=== PATIENT | male | born 1995 | race African-American/Black ===

== ENCOUNTER 2021-12-13 08:26 | Inpatient (IN) | payer OTHER, SELFPAY ==
[2021-12-13] VITALS (9 sets, daily range): BP systolic 137–188; BP diastolic 79–101; PULSE 75–98; RESP 12–18; TEMP 37.1; O2SAT 96–100; BMI 42.5
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
[2021-12-13] MEDS: LORazepam 2 MG/ML VIAL IM (15:44)
[2021-12-13] MEDS: diphenhydrAMINE HCL 50 MG/ML VIAL IM (15:44)
[2021-12-13] MEDS: Haloperidol Lactate 5 MG/ML VIAL 10 MG IM (15:44)
[2021-12-13] MEDS: lisinopriL 10 MG TABLET PO (16:51)
[2021-12-13] MEDS: Loratadine 10 MG TABLET PO (16:52)
[2021-12-13 17:20] LABS: COVID-19 Test Negative (Negative); IDNOW Serial# 16C4AD1C
[2021-12-13 18:28] LABS: Amphetamine Screen Urine Not Detected (Not Detect); Barbiturates, Urine Not Detected (Not Detect); Benzodiazepines Screen Urine Not Detected (Not Detect); Cannabinoid Screen Urine POSITIVE (Not Detect); Cocaine Screen Urine Not Detected (Not Detect); Fentanyl, urine Not Detected (Not Detect); Opiate Screen Urine Not Detected (Not Detect); Phencyclidine Screen Urine Not Detected (Not Detect)
[2021-12-14 00:32] VITALS: RESP 14
[2021-12-14 06:20] VITALS: RESP 16
--- NOTE | 2021-12-14 06:48 | PC.NURSE ---
PT woke up and came out of his room for the first time during this shift. PT is calm and cooperative at this time, successfully changed over, and awaiting progress in his plan of care.
--- NOTE | 2021-12-14 07:24 | PC.NURSE ---
reports recieved from Richard ARGUETA. PT has been ambulatory to [facility] and to use phone. calm at this time. steady on feet.
[2021-12-14] MEDS: lisinopriL 10 MG TABLET PO (09:04)
[2021-12-14] MEDS: Loratadine 10 MG TABLET PO (09:04)
--- NOTE | 2021-12-14 09:50 | PC.NURSE ---
Tiffanie Ricardo, on phone, permission given for update by this RN.
--- NOTE | 2021-12-14 10:04 | PHA.MEDREC ---
Pharmacy Consult ? Medication Reconciliation Pharmacy has completed the medication reconciliation. Pt poor historian, agreeable to every thing I had on my list. Pt did have some medications in locker with rx labels. Leah Gardner, CharletteD
--- NOTE | 2021-12-14 10:36 | PC.NURSE ---
Pt has been calm throughout the morning. Asking appropriate questions regarding crisis process.
[2021-12-14 10:46] VITALS: BP 144/71; PULSE 74; RESP 18; TEMP 37.2; O2SAT 98
--- NOTE | 2021-12-14 10:49 | ECG_ITS ---
Test Reason : medical clearance Blood Pressure : / mmHG Vent. Rate : 063 BPM Atrial Rate : 063 BPM P-R Int : 162 ms QRS Dur : 088 ms QT Int : 400 ms P-R-T Axes : 052 078 035 degrees QTc Int : 409 ms Normal sinus rhythm Normal ECG No previous ECGs available Referred By: Latrice Allen Electronically Signed By:Cabrera Pruitt
[2021-12-14 11:26] LABS: MANUAL DIFF FLAG NO
[2021-12-14 11:31] LABS: Basophils Percent Auto 0.1 % (0-2); Eosinophils Absolute Auto 0.2 X10*3/uL (0.0-0.4); Eosinophils Percent Auto 1.9 % (0-4); Hemoglobin 15.6 g/dl (14.0-18.0); Imm Gran Abs Auto 0.03 X10*3/uL (0.00-0.03); Imm Gran Pct Auto 0.4 % (0.0-0.4); Lymphocytes Absolute Auto 2.5 X10*3/uL (1.2-4.9); Mean Corpuscular HGB Conc 33.2 g/dl (31.0-36.0); Mean Corpuscular Hemoglobin 29.9 pg (27.0-33.0); Mean Platelet Volume 9.8 fL (9.4-12.4); Monocytes Absolute Auto 0.9 X10*3/uL (0.1-1.2); Monocytes Percent Auto 11.3 % (2-11); Neutrophils Absolute Auto 4.3 x10*3/uL (2.0-8.3); Neutrophils Percent Auto 54.3 % (45-73); Platelet Count 257 X10*3/uL (160-400); Red Blood Count 5.22 X10*6/uL (4.60-5.80); Red Cell Distribution Width 13.7 % (11.0-16.0); White Blood Count 7.8 X10*3/uL (4.8-10.8)
[2021-12-14] MEDS: Fluticasone Propionate Nasal 16 GM SPRAY 1 SPRAY NOSTRIL-B (11:31)
[2021-12-14] MEDS: amLODIPine Besylate 5 MG TABLET PO (11:31)
[2021-12-14 11:45] LABS: Alanine Aminotransferase 26 U/L (0-40); Albumin Level 4.2 g/dL (3.5-5.0); Alkaline Phosphatase 82 U/L (39-117); Anion Gap 13 (12-20); Aspartate Amino Transferase 61 U/L (5-37); Bilirubin Total 0.9 mg/dL (0.0-1.0); Blood Urea Nitrogen 13 mg/dL (9-16); Calcium 9.5 mg/dL (8.4-10.2); Carbon Dioxide 26 mmol/L (22-29); Chloride 103 mmol/L (96-108); Creatinine Clr Calc Pharmacy 136.7; Estimated Glomerular Filt Rate > 60; Glucose Random 86 mg/dL (60-115); Potassium 4.3 mmol/L (3.3-5.1); Sodium 138 mmol/L (135-145); Total Protein 7.4 g/dL (6.5-8.0)
--- NOTE | 2021-12-14 15:53 | PC.NURSE ---
rn to rn with ambrocio on m5
[2021-12-14 18:00] VITALS: BP 139/83; PULSE 87; RESP 16; TEMP 36.8; O2SAT 99
[2021-12-14 18:04] VITALS: BMI 44.5
[2021-12-14] MEDS: traZODone HCL 50 MG TABLET PO (19:53)
--- NOTE | 2021-12-14 20:11 | PC.ADMIT ---
Pt is a 26y/o male admitted for SI concerns after Pt's found what appeared to be a suicide note. Pt was restraint due to agitation to growing agitation and stating he was going to leave. Pt is alert and oriented X4, VSS, covid negative and tox positive for thc. Pt's record shows acute HTN. Pt is quite and pleasant put in a 3 day notice, states he wants to leave as soon as possible. Upon assessment Pt is cooperative. Speech is regular with normal tone rate and rhythm. Denies SI/HI and all psych symptoms. 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 Pt has no psych history and denies any prior psych treatment. Pt is looking forward to getting out of here on Saturday when his 3 day is up. Admission order obtained.
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
[2021-12-14] MEDS: Acetaminophen 325 MG TABLET 650 MG PO (22:22)
[2021-12-15] MEDS: Loratadine 10 MG TABLET PO (08:19)
[2021-12-15] MEDS: Fluticasone Propionate Nasal 16 GM SPRAY 1 SPRAY NOSTRIL-B (08:20)
[2021-12-15] MEDS: lisinopriL 10 MG TABLET PO (08:20)
[2021-12-15] MEDS: amLODIPine Besylate 5 MG TABLET PO (08:20)
[2021-12-15] MEDS: Triamcinolone Acet 0.025 % Cream 15 GM TUBE 1 APPL TOPICAL (08:20)
[2021-12-15 08:33] VITALS: BP 139/89; PULSE 92; RESP 18; TEMP 36.8; O2SAT 97
[2021-12-15 09:23] LABS: Cholesterol 174 mg/dL; HDL Cholesterol 44 mg/dL; LDL Cholesterol Calculated 117 mg/dl; Triglycerides 68 mg/dL
[2021-12-15] MEDS: Acetaminophen 325 MG TABLET 650 MG PO (12:20)
[2021-12-15] MEDS: Benzocaine 20 % Oral Gel 9 GM TUBE 1 APPL MUCOUS MEM ×2 (13:09→18:11)
--- NOTE | 2021-12-15 18:45 | P.PNPSI_ITS ---
Subjective Subjective Date of Service: 12/15/21 Reason For Visit: SI Interim History: Patient seen and discussed with team. Patient evaluated today and upon interview he reports I really want to see my kids, was looking forward to seeing them for Easter. He continues to adamantly deny SI and state that the letter his found was not a suicide note and this was misinterpreted. Says he still doesnt want psychotropic medications. Sleep is good, utilizing trazodone. In the milieu, patient is safe and appropriate in behavior. Denies SI/SIB/HI upon inquiry. Denies irritability or assaultive ideation. Says he feels safe. Mental Status Exam Mental Status Exam Narrative: A&O. Well groomed, good hygiene, overweight. Good eye contact, attentive. No Tics or Tremors. No abnormal involuntary movements. Calm, cooperative, engaged. Non-pressured speech, spontaneous with regular rate and rhythm, normal volume and prosody. No prolonged speech latency or dysarthria. Mood is ?fine,? affect is euthymic. Denies SI/SIB/HI upon inquiry. Denies A/VH or delusional thought content. Thoughts are coherent, organized. No known cognitive or memory impairment. Insight/ Judgment fair and adequate. Diagnostics Vital Signs (24Hr): Vital Signs - 24 hr 12/15/21 08:33 Temperature 98.2 F Pulse Rate 92 Respiratory Rate 18 Blood Pressure 139/89 Pulse Oximetry 97 BMI result Body Mass Index 44.5 Labs Results: 12/14/21 11:13 12/14/21 11:13 Labs: Laboratory Results - last 48 hr 12/14/21 12/14/21 12/15/21 11:13 11:13 08:05 WBC 7.8 RBC 5.22 Hgb 15.6 Hct 47.0 MCV 90.0 MCH 29.9 MCHC 33.2 RDW 13.7 Plt Count 257 MPV 9.8 Immature Gran % (Auto) 0.4 Neut % (Auto) 54.3 Lymph % (Auto) 32.0 [place] % (Auto) 11.3 H Eos % (Auto) 1.9 Baso % (Auto) 0.1 Lymph # (Auto) 2.5 [place] # (Auto) 0.9 Eos # (Auto) 0.2 Baso # (Auto) 0.0 Abs Immat Gran (auto) 0.03 Absolute Neuts (auto) 4.3 Absolute Nucleated RBC 0.000 Nucleated RBC % (auto) 0.0 Sodium 138 Potassium 4.3 Chloride 103 Carbon Dioxide 26 Anion Gap 13 BUN 13 Creatinine 1.04 Estim Creat Clear Calc 136.7 Estimated GFR > 60 Random Glucose 86 Calcium 9.5 Total Bilirubin 0.9 AST 61 H ALT 26 Alkaline Phosphatase 82 Total Protein 7.4 Albumin 4.2 Triglycerides 68 Cholesterol 174 LDL Cholesterol, Calc 117 HDL Cholesterol 44 Medications Medications Current Medications Acetaminophen (Acetaminophen 325 Mg Tablet) 650 mg PO Q6H PRN PRN Reason: Headache/Pain Mild Scale (1-3) Last Admin: 12/15/21 12:20 Dose: 650 mg Documented by: Al Hydroxide/Mg Hydroxide (Magnesium Hydrox/Alum Hydrox 30 Ml Oral.Susp) 30 ml PO Q6H PRN PRN Reason: Heartburn/Nausea Albuterol Sulfate (Albuterol Sulfate 90 Mcg 8 Gm Inhaler) 2 puff INHALE Q4H PRN PRN Reason: Wheezing Amlodipine Besylate (Amlodipine Besylate 5 Mg Tablet) 5 mg PO DAILY [facility]; Protocol Last Admin: 12/15/21 08:20 Dose: 5 mg Documented by: Benzocaine (Benzocaine 20 % Oral Gel 9 Gm Tube) 1 appl MUCOUS MEM QID PRN; Protocol PRN Reason: tooth/gum pain Last Admin: 12/15/21 18:11 Dose: 1 appl Documented by: Diphenhydramine HCl (Diphenhydramine Hcl 25 Mg Tablet) 50 mg PO Q4H PRN PRN Reason: agitation Fluticasone Propionate (Fluticasone Propionate Nasal 16 Gm [place]) 1 spray NOSTRIL-B DAILY [facility] Last Admin: 12/15/21 08:20 Dose: 1 spray Documented by: Fluticasone/Vilanterol (Fluticasone/Vilanterol 100/25 Blst.W.Dev) 1 puff INHALE RDAILY [facility] Last Admin: 12/15/21 10:54 Dose: Not Given Documented by: Haloperidol (Haloperidol 5 Mg Tablet) 10 mg PO Q4H PRN PRN Reason: agitation Hydroxyzine HCl (Hydroxyzine Hcl 25 Mg Tablet) 25 mg PO BEDTIME PRN PRN Reason: Anxiety Ketoconazole (Ketoconazole 2 % Shampoo 120 Ml Btl) 1 appl TOPICAL Q2D [facility]; Protocol Last Admin: 12/15/21 14:13 Dose: Not Given Documented by: Lisinopril (Lisinopril 10 Mg Tablet) 10 mg PO DAILY [facility]; Protocol Last Admin: 12/15/21 08:20 Dose: 10 mg Documented by: Loratadine (Loratadine 10 Mg Tablet) 10 mg PO DAILY [facility] Last Admin: 12/15/21 08:19 Dose: 10 mg Documented by: Lorazepam (Lorazepam 1 Mg Tablet) 2 mg PO Q4H PRN PRN Reason: agitation Magnesium Hydroxide (Milk Of Magnesia 30 Ml Oral.Susp) 30 ml PO DAILY PRN PRN Reason: Constipation Nicotine Polacrilex (Nicotine Polacrilex Lozenge 2 Mg Lozenge) 2 mg BUCCAL QID PRN PRN Reason: Nicotine Cravings Trazodone HCl (Trazodone Hcl 50 Mg Tablet) 50 mg PO BEDTIME [facility] Last Admin: 12/14/21 19:53 Dose: 50 mg Documented by: Triamcinolone Acetonide (Triamcinolone Acet 0.025 % Cream 15 Gm Tube) 1 appl TOPICAL DAILY [facility] Last Admin: 12/15/21 08:20 Dose: 1 appl Documented by: Allergies Allergies Allergy/AdvReac Type Severity Reaction Status Date / Time ibuprofen Allergy Hives Verified 12/13/21 08:41 Assessment & Plan Assessment & Plan (1) MDD (major depressive disorder), recurrent episode, mild: Status: Acute Code(s): F33.0 - Major depressive disorder, recurrent, mild (2) Post traumatic stress disorder (PTSD): Status: Acute Code(s): F43.10 - Post-traumatic stress disorder, unspecified Plan Jesus is a 26 y.o. Male who carries a dx of PTSD, MDD recurrent. He presented to [facility] ED on 12/13/21 via PD, however not on a Section 12, after his found a letter written by pt which she interpreted to be suicidal and she called 911. Pt adamantly denies suicidal ideation or that it was a suicide note. Pt does not have a psych history. Hx of stimulants for ADHD sx from PCP but no other psych med trials. Pt is advocating to leave, as he feels he is safe and stable, signed a 3 day notice. Plan: Pt does not want to trial psychiatric medication. He is interested in starting couples therapy with his . Q15 min safety checks, CV Monitor response to medications. Monitor for safety in the milieu. Discharge on stabilization. Patient seen. Chart reviewed. Discussed with team. Obtain collateral contact info?as needed I spent minutes with the patient and/or on the patient floor today, greater than?50% of which was spent counseling/coordinating care. Patient educated on: therapeutic strategies Reason for contiued inpatient stay Substantial Risk for: stable for discharge
--- NOTE | 2021-12-15 18:46 | PM.DS ---
DS: Providers Provider Date of Service: 12/15/21 Date of admission: 12/14/21 16:43 Date of discharge: 12/15/21 Primary care physician: Nonstaff Physician Admitting clinician: Estefany Orellana Attending physician on admission: Car Villafuerte Attending physician on discharge: Car Villafuerte Discharging clinician: Estefany Orellana DS: Diagnosis Discharge Diagnosis (1) MDD (major depressive disorder), recurrent episode, mild: Status: Acute (2) Post traumatic stress disorder (PTSD): Status: Acute DS: Summary Hospital Course Hospital Course: Jesus is a 26 y.o. Male who carries a dx of PTSD, MDD recurrent. He presented to [facility] on 12/13/21 via PD, not on a Section 12, after his found a letter written by pt that she interpreted to be suicidal and she called 911. Per pt?s , the note stated I love you but it is time for me to go. Life is too hard. He was also saying goodbye to family members in the letter. Pt himself adamantly denies suicidal ideation and says he wrote down his feelings after being triggered from past trauma, as a friend advised him to try this and he denies that it is a suicide note. Pt identifies multiple precipitating factors for his depression including strain in his relationship with his , as they are living apart and arguing about finances, and his grandmother who raised him is ill and dying.? During evaluation, pt denied mood or behavioral issues. Denies sleep concerns. He continued to deny SI throughout hospitalization. Says he feels safe. Denies hx of suicide attempts or self harm. He identified several protective factors, including his kids. Says he is committed to his and wants to do couples counseling. Doesnt want psychiatric medications, says he does not think he needs them.? Past Psychiatric History: Denies hx of IPLOC, CCS/ Respite, PHP, or OP services. Past meds: Concerta, ritalin (from PCP, felt ?horrible, like a zombie?). Status at Discharge Cognitive/behavioral status at discharge: Pt alert and oriented. He presented as stable for discharge. No imminent safety concerns. Functional status at discharge: independent ambulation Time Spent with Patient Time attestation: Total time spent providing and/or coordinating discharge services: Discharge coordination time: Less than 30 minutes Quality: Safe Use of Opioids Does Pt have an Active Cancer Diagnosis on the Problem List?: No Quality: Stroke Does the patient have a stroke diagnosis?: No Physical Exam Vital Signs: Vital Signs: Last Vital Signs Temp 98.2 F 12/15/21 08:33 Pulse 92 12/15/21 08:33 Resp 18 12/15/21 08:33 BP 139/89 12/15/21 08:33 Pulse Ox 97 12/15/21 08:33 BMI result Body Mass Index 44.5 Psych: Other: A&O. Well groomed, good hygiene, overweight. Good eye contact, attentive. No Tics or Tremors. No abnormal involuntary movements. Calm, cooperative, engaged. Non-pressured speech, spontaneous with regular rate and rhythm, normal volume and prosody. No prolonged speech latency or dysarthria. Mood is ?good,? affect is euthymic. Denies SI/SIB/HI upon inquiry. Denies A/VH or delusional thought content. Thoughts are coherent, organized. No known cognitive or memory impairment. Insight/ Judgment fair and adequate. DS: Data Data Completed and Pending Labs on day of discharge: Laboratory Results - last 24 hr 12/15/21 08:05 Triglycerides 68 Cholesterol 174 LDL Cholesterol, Calc 117 HDL Cholesterol 44 Discharge Plan Discharge Anticipated Discharge Date/Time: 12/15/21 20:00 Patient Disposition: Home, Self-Care Discharge Diagnosis: PTSD Referrals: Physician,Nonstaff [Primary Care Provider] - 1 Week Discharge Medications: New ketoconazole 2 % Shampoo 1 appl topical Q2D Qty: 120 0RF Protocol: Apply to: Apply to: affected area trazodone 50 mg Tablet 50 mg PO BEDTIME Qty: 30 0RF amlodipine 5 mg Tablet 5 mg PO DAILY Qty: 30 0RF Protocol: Hold for SBP< HOLD for SBP < : 90 triamcinolone acetonide 0.025 % Cream 1 appl topical DAILY Qty: 15 0RF lisinopril 10 mg Tablet 10 mg PO DAILY Qty: 30 0RF Protocol: Hold for SBP< HOLD for SBP < : 90 albuterol sulfate [Ventolin HFA] 90 mcg/actuation Hfa Aerosol Inhaler 2 puff inhalation Q4H PRN (Reason: Wheezing) Qty: 6.7 0RF Anbesol (benzocaine) Max Str 20 % Gel 1 appl mucous membrane QID PRN (Reason: tooth/gum pain) Qty: 9 0RF Protocol: Apply to: Apply to: tooth/gum loratadine 10 mg Tablet 10 mg PO DAILY Qty: 30 0RF Breo Ellipta 100-25 mcg/dose Blister With Device 1 ea inhalation RDAILY Qty: 28 0RF Continued ketoconazole 2 % shampoo 1 appl topical MOWEFR 0RF cetirizine 10 mg tablet 1 tab PO DAILY 0RF lisinopril 10 mg tablet 1 tab PO DAILY 0RF fluocinolone 0.01 % solution 1 appl topical DAILY 0RF albuterol sulfate [ProAir HFA] 90 mcg/actuation HFA aerosol inhaler 2 puff inhalation Q4H PRN (Reason: Wheezing) 0RF Advair HFA 115-21 mcg/actuation HFA aerosol inhaler 2 puff inhalation BID 0RF amlodipine 5 mg tablet 1 tab PO DAILY 0RF fluticasone propionate 50 mcg/actuation spray,suspension 1 spray intranasal DAILY 0RF trazodone 50 mg Tablet 50 mg PO BEDTIME 0RF Discontinued nicotine (polacrilex) 2 mg mini lozenge 2 mg sublingual QID PRN (Reason: Nicotine Cravings) 0RF Discharge Orders: Discharge Order (Routine); Ordered 12/15/21 Ordered By: Estefany Orellana Diet: advance to usual diet Activity on Discharge: As tolerated Stand Alone Forms: Patient Portal Discharge page, Community Support Care Plan Goals: Continue with scheduled home medication, follow up with outpatient referrals and PCP. Health Concerns: Continue to work on sleep hygiene. Plan of Treatment: Continue on home medications as scheduled, follow up with couple's counseling. Assessment: Patient is stable, denies suicidal ideation or self harm urges, no imminent safety concerns, patient is future oriented and reports improvement from therapeutic interventions. Discharge Date/Time: 12/15/21 20:07
== END 2021-12-15 20:07 | disposition home or self-care (01) | DRG 755 ==
LOC: HO.ED 09:24 → HO.PM5 12-14 16:58
PROVIDERS: Admitting Provider Psychiatry & Neurology Psychiatry; Emergency Provider Emergency Medicine; Visit Provider Psychiatry & Neurology Psychiatry
DX: F43.10 Post-traumatic stress disorder, unspecified (principal); R45.851 Suicidal ideations; F17.210 Nicotine dependence, cigarettes, uncomplicated; Z20.822 Contact with and (suspected) exposure to COVID-19; Z71.6 Tobacco abuse counseling; Z88.6 Allergy status to analgesic agent; Z79.51 Long term (current) use of inhaled steroids; Z79.899 Other long term (current) drug therapy
CPT/HCPCS: 36415; 80053; 80061; 80307; 85025; 87635; 93005; 96372; 99285; J1200; J2060